=== PATIENT | female | born 1955 | race Caucasian/White ===

== ENCOUNTER 2020-03-16 03:06 | Outpatient (CLI) | payer MEDICAID, SELFPAY ==
[2020-03-16 12:02] LABS: Abs Immature Grans 0.58 10^3/uL (0.0-0.06); HGB 11.2 g/dL (11.2-15.7); MCH 29.2 pg (27.0-33.0); MCHC 32.9 % (32.0-36.0); MCV 88.5 fL (80-95); MPV 8.8 fL (8.0-11.0); Nucleated RBC 0 %; Platelet Count 437 10^3/uL (130-400); RBC 3.84 10^6/uL (3.93-5.22); RDW 14.1 % (11.7-14.6); RDW-SD 42.9 fL; WBC 9.96 10^3/uL (4.4-10.8)
[2020-03-16 12:16] LABS: Absolute Lymphocyte Count 2.19 10^3/uL (1.2-3.4); Absolute Neutrophil Count 6.18 10^3/uL (1.2-6.7); Atypical Lymphocytes % 4; Diff Comment Manual Differential; Metamyelocytes % 2; Myelocytes % 3; Polychromasia Present
[2020-03-16 12:34] LABS: ALT 25 U/L (14-59); AST 20 U/L (15-37); Albumin 3.4 g/dL (3.4-5.0); Alkaline Phosphatase 136 U/L (46-116); Anion Gap 6.1 mmol/L (3-11); BUN 9 mg/dL (7-18); Bilirubin, Total 0.3 mg/dL (0.2-1.0); CO2 27.9 mmol/L (21.0-32.0); CREATININE 0.73 mg/dL (0.55-1.02); Calcium 8.6 mg/dL (8.5-10.1); Chloride 107 mmol/L (98-107); FREE T4 1.15 ng/dL (0.76-1.46); Glucose 103 mg/dL (74-106); Magnesium 1.3 mg/dL (1.8-2.4); Potassium 3.5 mmol/L (3.5-5.1); Sodium 141 mmol/L (136-145); TSH 0.33 uIU/mL (0.36-3.74); Total Protein 6.8 g/dL (6.4-8.2)
== END 2020-03-16 03:26 ==
PROVIDERS: PCP Legal Medicine; Visit Provider Internal Medicine Medical Oncology
DX: C34.90 Malignant neoplasm of unspecified part of unspecified bronchus or lung (principal)
CPT/HCPCS: 36415; 80053; 83735; 84439; 84443; 85025

== ENCOUNTER 2020-03-26 07:40 | Outpatient (CLI) | payer MEDICAID, SELFPAY ==
[2020-03-26 10:41] LABS: Abs Immature Grans 0.04 10^3/uL (0.0-0.06); Absolute Basophil Count 0.04 10^3/uL (0.0-0.2); Absolute Eosinophil Count 0.08 10^3/uL (0.0-0.7); Absolute Lymphocyte Count 1.24 10^3/uL (1.2-3.4); Absolute Monocyte Count 0.25 10^3/uL (0.1-0.8); HCT 31.2 % (36.0-46.0); HGB 10.4 g/dL (11.2-15.7); Lymphocytes % 31.4; MCH 29.1 pg (27.0-33.0); MCHC 33.3 % (32.0-36.0); MCV 87.4 fL (80-95); MPV 9.6 fL (8.0-11.0); Monocytes % 6.3; Neutrophils % 58.3; Nucleated RBC 0 %; Platelet Count 186 10^3/uL (130-400); RBC 3.57 10^6/uL (3.93-5.22); RDW 13.7 % (11.7-14.6); RDW-SD 42.2 fL; WBC 3.95 10^3/uL (4.4-10.8)
[2020-03-26 10:54] LABS: ALT 37 U/L (14-59); AST 25 U/L (15-37); Albumin 3.6 g/dL (3.4-5.0); Alkaline Phosphatase 171 U/L (46-116); Anion Gap 8.5 mmol/L (3-11); BUN 18 mg/dL (7-18); Bilirubin, Total 0.8 mg/dL (0.2-1.0); CO2 27.5 mmol/L (21.0-32.0); CREATININE 1.08 mg/dL (0.55-1.02); Calcium 8.8 mg/dL (8.5-10.1); Chloride 102 mmol/L (98-107); Estimated GFR 51.08 (mL/min/1.73m2); Glucose 114 mg/dL (74-106); Magnesium 1.4 mg/dL (1.8-2.4); Potassium 3.8 mmol/L (3.5-5.1); Sodium 138 mmol/L (136-145); Total Protein 6.9 g/dL (6.4-8.2)
== END 2020-03-26 08:00 ==
PROVIDERS: PCP Legal Medicine; Visit Provider Internal Medicine Medical Oncology
DX: C34.90 Malignant neoplasm of unspecified part of unspecified bronchus or lung (principal)
CPT/HCPCS: 36415; 80053; 83735; 85025

== ENCOUNTER 2020-04-06 02:49 | Outpatient (RCR) | payer MEDICAID, SELFPAY | END 2020-04-13 23:59 | disposition home or self-care (01) | LOC: INF 02:49 | PROVIDERS: PCP Legal Medicine; Visit Provider Internal Medicine Medical Oncology ==

== ENCOUNTER 2020-04-06 11:42 | Outpatient (REF) | payer MEDICAID, SELFPAY ==
[2020-04-06 12:04] LABS: ALT 25 U/L (14-59); AST 22 U/L (15-37); Abs Immature Grans 0.88 10^3/uL (0.0-0.06); Albumin 3.8 g/dL (3.4-5.0); Alkaline Phosphatase 136 U/L (46-116); Anion Gap 8.8 mmol/L (3-11); BUN 8 mg/dL (7-18); Bilirubin, Total 0.2 mg/dL (0.2-1.0); CO2 26.2 mmol/L (21.0-32.0); CREATININE 0.85 mg/dL (0.55-1.02); Calcium 8.8 mg/dL (8.5-10.1); Chloride 104 mmol/L (98-107); FREE T4 1.06 ng/dL (0.76-1.46); Glucose 89 mg/dL (74-106); HCT 32.4 % (36.0-46.0); HGB 10.8 g/dL (11.2-15.7); MCH 30.6 pg (27.0-33.0); MCHC 33.3 % (32.0-36.0); MCV 91.8 fL (80-95); MPV 9.5 fL (8.0-11.0); Magnesium 1.7 mg/dL (1.8-2.4); Nucleated RBC 0 %; Potassium 4.3 mmol/L (3.5-5.1); RBC 3.53 10^6/uL (3.93-5.22); RDW 17.2 % (11.7-14.6); RDW-SD 55.1 fL; Sodium 139 mmol/L (136-145); TSH 0.47 uIU/mL (0.36-3.74); Total Protein 7.1 g/dL (6.4-8.2); WBC 7.35 10^3/uL (4.4-10.8)
[2020-04-06 12:20] LABS: Absolute Lymphocyte Count 1.62 10^3/uL (1.2-3.4); Absolute Monocyte Count 0.81 10^3/uL (0.1-0.8); Absolute Neutrophil Count 3.97 10^3/uL (1.2-6.7); Bands % 3; Platelet Count 644 10^3/uL (130-400)
[2020-04-06 12:21] LABS: Anisocytosis 2+; Diff Comment Manual Differential; Metamyelocytes % 6; Myelocytes % 7; Polychromasia Present
== END 2020-04-06 12:02 ==
LOC: LBN 11:42
PROVIDERS: PCP Legal Medicine; Visit Provider Internal Medicine Medical Oncology
DX: C34.90 Malignant neoplasm of unspecified part of unspecified bronchus or lung (principal)
CPT/HCPCS: 80053; 83735; 84439; 84443; 85025

== ENCOUNTER 2020-04-27 01:32 | Outpatient (RCR) | payer MEDICAID, SELFPAY ==
[2020-04-15 10:36] LABS: ALT 47 U/L (14-59); AST 29 U/L (15-37); Albumin 3.4 g/dL (3.4-5.0); Alkaline Phosphatase 232 U/L (46-116); Anion Gap 8.4 mmol/L (3-11); BUN 20 mg/dL (7-18); Bilirubin, Total 0.5 mg/dL (0.2-1.0); CO2 24.6 mmol/L (21.0-32.0); CREATININE 0.99 mg/dL (0.55-1.02); Calcium 8.9 mg/dL (8.5-10.1); Chloride 102 mmol/L (98-107); Estimated GFR 56.47 (mL/min/1.73m2); Glucose 106 mg/dL (74-106); Magnesium 1.8 mg/dL (1.8-2.4); Potassium 4.4 mmol/L (3.5-5.1); Sodium 135 mmol/L (136-145); Total Protein 7.2 g/dL (6.4-8.2)
[2020-04-27] MEDS: Normal Saline Flush 10 ML SYR IVP (09:40)
[2020-04-27 09:43] LABS: HGB 9.8 g/dL (11.2-15.7); MCH 30.9 pg (27.0-33.0); MCHC 32.7 % (32.0-36.0); MCV 94.6 fL (80-95); MPV 9.1 fL (8.0-11.0); Platelet Count 390 10^3/uL (130-400); RBC 3.17 10^6/uL (3.93-5.22); RDW 18.9 % (11.7-14.6); RDW-SD 64.5 fL; WBC 11.64 10^3/uL (4.4-10.8)
[2020-04-27 10:06] LABS: Absolute Lymphocyte Count 1.28 10^3/uL (1.2-3.4); Absolute Neutrophil Count 8.38 10^3/uL (1.2-6.7); Bands % 4
[2020-04-27 10:07] LABS: ALT 20 U/L (14-59); AST 15 U/L (15-37); Absolute Eosinophil Count 0.12 10^3/uL (0.0-0.7); Absolute Monocyte Count 1.28 10^3/uL (0.1-0.8); Albumin 3.7 g/dL (3.4-5.0); Alkaline Phosphatase 143 U/L (46-116); Anion Gap 10.7 mmol/L (3-11); Anisocytosis 2+; BUN 12 mg/dL (7-18); Bilirubin, Total 0.4 mg/dL (0.2-1.0); CO2 22.3 mmol/L (21.0-32.0); CREATININE 0.84 mg/dL (0.55-1.02); Calcium 8.6 mg/dL (8.5-10.1); Chloride 102 mmol/L (98-107); Diff Comment Manual Differential; Glucose 113 mg/dL (74-106); Magnesium 1.8 mg/dL (1.8-2.4); Metamyelocytes % 3; Myelocytes % 2; Nucleated RBC 1 %; Poikilocytes 1+; Polychromasia Present; Potassium 4.1 mmol/L (3.5-5.1); Sodium 135 mmol/L (136-145); TSH 1.59 uIU/mL (0.36-3.74); Total Protein 7.1 g/dL (6.4-8.2)
== END 2020-05-14 23:59 | disposition home or self-care (01) ==
LOC: INF 01:32
PROVIDERS: PCP Legal Medicine; Visit Provider Internal Medicine Medical Oncology
DX: C34.90 Malignant neoplasm of unspecified part of unspecified bronchus or lung (principal)
CPT/HCPCS: 36415; 80053; 83735; 84439; 84443; 85025

== ENCOUNTER 2020-05-26 02:15 | Outpatient (CLI) | payer MEDICAID, SELFPAY ==
[2020-05-26 10:35] LABS: Abs Immature Grans 0.25 10^3/uL (0.0-0.06); Absolute Basophil Count 0.03 10^3/uL (0.0-0.2); HCT 24.9 % (36.0-46.0); HGB 8.3 g/dL (11.2-15.7); MCH 31.4 pg (27.0-33.0); MCHC 33.3 % (32.0-36.0); MCV 94.3 fL (80-95); MPV 9.1 fL (8.0-11.0); Nucleated RBC 0 %; RBC 2.64 10^6/uL (3.93-5.22); RDW 16.8 % (11.7-14.6); RDW-SD 58.4 fL; WBC 3.49 10^3/uL (4.4-10.8)
[2020-05-26 10:56] LABS: ALT 20 U/L (14-59); AST 14 U/L (15-37); Alkaline Phosphatase 154 U/L (46-116); Anion Gap 8.8 mmol/L (3-11); BUN 23 mg/dL (7-18); Bilirubin, Total 0.6 mg/dL (0.2-1.0); CO2 26.2 mmol/L (21.0-32.0); Calcium 8.8 mg/dL (8.5-10.1); Chloride 102 mmol/L (98-107); Estimated GFR 50.01 (mL/min/1.73m2); FREE T4 1.36 ng/dL (0.76-1.46); Glucose 129 mg/dL (74-106); Magnesium 1.8 mg/dL (1.8-2.4); Sodium 137 mmol/L (136-145); TSH 0.17 uIU/mL (0.36-3.74); Total Protein 7.1 g/dL (6.4-8.2)
[2020-05-26 10:59] LABS: Absolute Lymphocyte Count 0.56 10^3/uL (1.2-3.4); Absolute Neutrophil Count 2.86 10^3/uL (1.2-6.7); Anisocytosis 1+; Bands % 3; Diff Comment Manual Differential; Platelet Count 304 10^3/uL (130-400)
[2020-05-26 11:00] LABS: Absolute Monocyte Count 0.03 10^3/uL (0.1-0.8)
== END 2020-05-26 02:35 ==
PROVIDERS: PCP Legal Medicine; Visit Provider Internal Medicine Medical Oncology
DX: C34.90 Malignant neoplasm of unspecified part of unspecified bronchus or lung (principal)
CPT/HCPCS: 36415; 80053; 83735; 84439; 84443; 85025

== ENCOUNTER 2020-06-08 03:06 | Outpatient (RCR) | payer MEDICAID, SELFPAY ==
[2020-05-18] MEDS: Normal Saline Flush 10 ML SYR IVP (08:58)
[2020-05-18 09:10] LABS: Abs Immature Grans 0.25 10^3/uL (0.0-0.06); Absolute Basophil Count 0.03 10^3/uL (0.0-0.2); Absolute Eosinophil Count 0.05 10^3/uL (0.0-0.7); Absolute Lymphocyte Count 0.93 10^3/uL (1.2-3.4); Absolute Monocyte Count 0.96 10^3/uL (0.1-0.8); Absolute Neutrophil Count 7.05 10^3/uL (1.2-6.7); Basophils % 0.3; Eosinophils % 0.5; HCT 25.6 % (36.0-46.0); HGB 8.4 g/dL (11.2-15.7); Immature Grans % 2.7; MCHC 32.8 % (32.0-36.0); MCV 94.5 fL (80-95); MPV 9.2 fL (8.0-11.0); Monocytes % 10.4; Neutrophils % 76.1; Nucleated RBC 0 %; Platelet Count 433 10^3/uL (130-400); RBC 2.71 10^6/uL (3.93-5.22); RDW-SD 66.4 fL; WBC 9.27 10^3/uL (4.4-10.8)
[2020-05-18 09:32] LABS: ALT 21 U/L (14-59); AST 17 U/L (15-37); Alkaline Phosphatase 154 U/L (46-116); Anion Gap 8.7 mmol/L (3-11); BUN 13 mg/dL (7-18); Bilirubin, Total 0.4 mg/dL (0.2-1.0); CO2 24.3 mmol/L (21.0-32.0); CREATININE 0.99 mg/dL (0.55-1.02); Calcium 8.6 mg/dL (8.5-10.1); Chloride 103 mmol/L (98-107); Estimated GFR 56.47 (mL/min/1.73m2); FREE T4 1.31 ng/dL (0.76-1.46); Glucose 124 mg/dL (74-106); Magnesium 1.7 mg/dL (1.8-2.4); Sodium 136 mmol/L (136-145); TSH 1.32 uIU/mL (0.36-3.74); Total Protein 6.8 g/dL (6.4-8.2)
[2020-06-08 09:52] LABS: Abs Immature Grans 0.69 10^3/uL (0.0-0.06); HCT 31.3 % (36.0-46.0); HGB 10.2 g/dL (11.2-15.7); MCH 29.9 pg (27.0-33.0); MCHC 32.6 % (32.0-36.0); MCV 91.8 fL (80-95); MPV 9.1 fL (8.0-11.0); Nucleated RBC 0 %; Platelet Count 388 10^3/uL (130-400); RBC 3.41 10^6/uL (3.93-5.22); RDW 16.5 % (11.7-14.6); RDW-SD 55.1 fL; WBC 10.78 10^3/uL (4.4-10.8)
[2020-06-08 10:09] LABS: Absolute Lymphocyte Count 1.19 10^3/uL (1.2-3.4); Absolute Monocyte Count 0.65 10^3/uL (0.1-0.8); Absolute Neutrophil Count 8.09 10^3/uL (1.2-6.7); Anisocytosis 1+; Diff Comment Manual Differential; Metamyelocytes % 4; Myelocytes % 4
[2020-06-08 10:10] LABS: Polychromasia Present
[2020-06-08 10:15] LABS: AST 13 U/L (15-37); Albumin 2.8 g/dL (3.4-5.0); Alkaline Phosphatase 164 U/L (46-116); Anion Gap 8.1 mmol/L (3-11); BUN 7 mg/dL (7-18); Bilirubin, Total 0.2 mg/dL (0.2-1.0); CO2 26.9 mmol/L (21.0-32.0); CREATININE 1.09 mg/dL (0.55-1.02); Calcium 8.6 mg/dL (8.5-10.1); Chloride 103 mmol/L (98-107); Estimated GFR 50.54 (mL/min/1.73m2); Glucose 114 mg/dL (74-106); Potassium 3.4 mmol/L (3.5-5.1); Sodium 138 mmol/L (136-145); Total Protein 6.9 g/dL (6.4-8.2)
[2020-06-08 10:16] LABS: ALT 18 U/L (14-59); FREE T4 1.39 ng/dL (0.76-1.46); Magnesium 1.6 mg/dL (1.8-2.4); TSH 0.39 uIU/mL (0.36-3.74)
[2020-06-08] MEDS: Normal Saline Flush 10 ML SYR IVP (10:19)
== END 2020-06-14 23:59 | disposition home or self-care (01) ==
LOC: INF 03:06
PROVIDERS: PCP Legal Medicine; Visit Provider Internal Medicine Medical Oncology
DX: C34.90 Malignant neoplasm of unspecified part of unspecified bronchus or lung (principal)
CPT/HCPCS: 36415; 80053; 83735; 84439; 84443; 85025

== ENCOUNTER 2020-06-29 01:29 | Outpatient (RCR) | payer MEDICAID, SELFPAY ==
[2020-06-29] MEDS: Normal Saline Flush 10 ML SYR IVP (09:46)
[2020-06-29 09:54] LABS: Abs Immature Grans 0.08 10^3/uL (0.0-0.06); Absolute Basophil Count 0.11 10^3/uL (0.0-0.2); Absolute Eosinophil Count 0.56 10^3/uL (0.0-0.7); Absolute Lymphocyte Count 1.82 10^3/uL (1.2-3.4); Absolute Monocyte Count 0.67 10^3/uL (0.1-0.8); Absolute Neutrophil Count 5.57 10^3/uL (1.2-6.7); Basophils % 1.2; Eosinophils % 6.4; HCT 40.3 % (36.0-46.0); HGB 13.3 g/dL (11.2-15.7); Immature Grans % 0.9; Lymphocytes % 20.7; MCH 30.8 pg (27.0-33.0); MCV 93.3 fL (80-95); MPV 10.5 fL (8.0-11.0); Monocytes % 7.6; Neutrophils % 63.2; Nucleated RBC 0 %; Platelet Count 271 10^3/uL (130-400); RBC 4.32 10^6/uL (3.93-5.22); RDW 14.8 % (11.7-14.6); RDW-SD 50.9 fL; WBC 8.81 10^3/uL (4.4-10.8)
[2020-06-29 10:16] LABS: ALT 22 U/L (14-59); AST 27 U/L (15-37); Albumin 3.7 g/dL (3.4-5.0); Alkaline Phosphatase 131 U/L (46-116); Anion Gap 9.8 mmol/L (3-11); BUN 18 mg/dL (7-18); Bilirubin, Total 0.4 mg/dL (0.2-1.0); CO2 23.2 mmol/L (21.0-32.0); CREATININE 1.1 mg/dL (0.55-1.02); Calcium 9.3 mg/dL (8.5-10.1); Chloride 103 mmol/L (98-107); Estimated GFR 50.01 (mL/min/1.73m2); Glucose 102 mg/dL (74-106); Magnesium 1.8 mg/dL (1.8-2.4); Sodium 136 mmol/L (136-145); TSH 0.44 uIU/mL (0.36-3.74); Total Protein 7.6 g/dL (6.4-8.2)
[2020-06-29 12:30] LABS: FREE T4 0.95 ng/dL (0.76-1.46)
== END 2020-07-12 23:59 | disposition home or self-care (01) ==
LOC: INF 01:29
PROVIDERS: PCP Legal Medicine; Visit Provider Internal Medicine Medical Oncology
DX: C34.90 Malignant neoplasm of unspecified part of unspecified bronchus or lung (principal)
CPT/HCPCS: 36415; 80053; 83735; 84439; 84443; 85025

== ENCOUNTER 2020-07-20 03:32 | Outpatient (RCR) | payer MEDICAID, SELFPAY ==
[2020-07-20] MEDS: Normal Saline Flush 10 ML SYR IVP (12:39)
[2020-07-20 12:45] LABS: Abs Immature Grans 0.07 10^3/uL (0.0-0.06); Absolute Basophil Count 0.07 10^3/uL (0.0-0.2); Absolute Eosinophil Count 0.35 10^3/uL (0.0-0.7); Absolute Lymphocyte Count 1.59 10^3/uL (1.2-3.4); Absolute Monocyte Count 0.59 10^3/uL (0.1-0.8); Basophils % 0.8; Eosinophils % 4.1; HCT 38.8 % (36.0-46.0); HGB 12.8 g/dL (11.2-15.7); Immature Grans % 0.8; Lymphocytes % 18.8; MCH 30.6 pg (27.0-33.0); MCV 92.8 fL (80-95); MPV 9.3 fL (8.0-11.0); Neutrophils % 68.5; Nucleated RBC 0 %; Platelet Count 317 10^3/uL (130-400); RBC 4.18 10^6/uL (3.93-5.22); RDW 14.3 % (11.7-14.6); RDW-SD 49.5 fL; WBC 8.47 10^3/uL (4.4-10.8)
[2020-07-20 13:12] LABS: ALT 26 U/L (14-59); AST 25 U/L (15-37); Alkaline Phosphatase 130 U/L (46-116); Anion Gap 9.1 mmol/L (3-11); BUN 19 mg/dL (7-18); Bilirubin, Total 0.7 mg/dL (0.2-1.0); CO2 25.9 mmol/L (21.0-32.0); Chloride 102 mmol/L (98-107); Estimated GFR 55.82 (mL/min/1.73m2); FREE T4 0.85 ng/dL (0.76-1.46); Glucose 90 mg/dL (74-106); Magnesium 1.9 mg/dL (1.8-2.4); Potassium 5.2 mmol/L (3.5-5.1); Sodium 137 mmol/L (136-145); TSH 0.32 uIU/mL (0.36-3.74); Total Protein 7.8 g/dL (6.4-8.2)
== END 2020-08-12 23:59 | disposition home or self-care (01) ==
LOC: INF 03:32
PROVIDERS: PCP Legal Medicine; Visit Provider Internal Medicine Medical Oncology
DX: C34.90 Malignant neoplasm of unspecified part of unspecified bronchus or lung (principal)
CPT/HCPCS: 36415; 80053; 83735; 84439; 84443; 85025

== ENCOUNTER 2020-08-17 14:03 | Outpatient (REF) | payer MEDICAID, SELFPAY ==
[2020-08-17 14:30] LABS: ALT 24 U/L (14-59); AST 18 U/L (15-37); Albumin 4.1 g/dL (3.4-5.0); Alkaline Phosphatase 145 U/L (46-116); Anion Gap 10.8 mmol/L (3-11); BUN 30 mg/dL (7-18); Bilirubin, Total 0.5 mg/dL (0.2-1.0); CO2 23.2 mmol/L (21.0-32.0); CREATININE 1.3 mg/dL (0.55-1.02); Calcium 9.4 mg/dL (8.5-10.1); Chloride 103 mmol/L (98-107); Estimated GFR 41.24 (mL/min/1.73m2); FREE T4 0.88 ng/dL (0.76-1.46); Glucose 85 mg/dL (74-106); Sodium 137 mmol/L (136-145); TSH 0.63 uIU/mL (0.36-3.74)
== END 2020-08-17 14:04 | disposition home or self-care (01) ==
LOC: LBN 14:03
PROVIDERS: PCP Legal Medicine; Visit Provider Internal Medicine Medical Oncology
DX: C34.90 Malignant neoplasm of unspecified part of unspecified bronchus or lung (principal)
CPT/HCPCS: 80053; 83735; 84439; 84443

== ENCOUNTER 2020-09-07 03:19 | Outpatient (RCR) | payer MEDICAID, SELFPAY ==
[2020-08-17 13:10] LABS: Abs Immature Grans 0.06 10^3/uL (0.0-0.06); Absolute Basophil Count 0.07 10^3/uL (0.0-0.2); Absolute Eosinophil Count 0.34 10^3/uL (0.0-0.7); Absolute Lymphocyte Count 1.39 10^3/uL (1.2-3.4); Absolute Monocyte Count 0.64 10^3/uL (0.1-0.8); Absolute Neutrophil Count 5.19 10^3/uL (1.2-6.7); Basophils % 0.9; Eosinophils % 4.4; HCT 37.9 % (36.0-46.0); HGB 12.9 g/dL (11.2-15.7); Immature Grans % 0.8; Lymphocytes % 18.1; MCH 31.3 pg (27.0-33.0); MPV 9.2 fL (8.0-11.0); Monocytes % 8.3; Neutrophils % 67.5; Nucleated RBC 0 %; Platelet Count 342 10^3/uL (130-400); RBC 4.12 10^6/uL (3.93-5.22); RDW 13.8 % (11.7-14.6); RDW-SD 46.6 fL; WBC 7.69 10^3/uL (4.4-10.8)
[2020-08-17] MEDS: Normal Saline Flush 10 ML SYR IVP (13:15)
[2020-09-07 08:21] LABS: Abs Immature Grans 0.03 10^3/uL (0.0-0.06); Absolute Basophil Count 0.04 10^3/uL (0.0-0.2); Absolute Eosinophil Count 0.27 10^3/uL (0.0-0.7); Absolute Lymphocyte Count 1.78 10^3/uL (1.2-3.4); Absolute Monocyte Count 0.46 10^3/uL (0.1-0.8); Absolute Neutrophil Count 4.07 10^3/uL (1.2-6.7); Basophils % 0.6; Eosinophils % 4.1; HCT 37.6 % (36.0-46.0); HGB 12.5 g/dL (11.2-15.7); Immature Grans % 0.5; Lymphocytes % 26.8; MCH 31.2 pg (27.0-33.0); MCHC 33.2 % (32.0-36.0); MCV 93.8 fL (80-95); MPV 9.4 fL (8.0-11.0); Monocytes % 6.9; Neutrophils % 61.1; Nucleated RBC 0 %; Platelet Count 236 10^3/uL (130-400); RBC 4.01 10^6/uL (3.93-5.22); RDW 13.1 % (11.7-14.6); RDW-SD 44.8 fL; WBC 6.65 10^3/uL (4.4-10.8)
[2020-09-07 08:44] LABS: ALT 21 U/L (14-59); AST 16 U/L (15-37); Albumin 3.9 g/dL (3.4-5.0); Alkaline Phosphatase 140 U/L (46-116); Anion Gap 8.3 mmol/L (3-11); BUN 20 mg/dL (7-18); Bilirubin, Total 0.4 mg/dL (0.2-1.0); CO2 27.7 mmol/L (21.0-32.0); CREATININE 1.2 mg/dL (0.55-1.02); Calcium 9.2 mg/dL (8.5-10.1); Chloride 105 mmol/L (98-107); Estimated GFR 45.23 (mL/min/1.73m2); FREE T4 0.87 ng/dL (0.76-1.46); Glucose 96 mg/dL (74-106); Magnesium 1.8 mg/dL (1.8-2.4); Potassium 4.5 mmol/L (3.5-5.1); Sodium 141 mmol/L (136-145); TSH 0.55 uIU/mL (0.36-3.74); Total Protein 7.6 g/dL (6.4-8.2)
[2020-09-07] MEDS: Normal Saline Flush 10 ML SYR IVP (08:54)
== END 2020-09-11 23:59 | disposition home or self-care (01) ==
LOC: INF 03:19
PROVIDERS: PCP Legal Medicine; Visit Provider Internal Medicine Medical Oncology
DX: C34.90 Malignant neoplasm of unspecified part of unspecified bronchus or lung (principal)
CPT/HCPCS: 36415; 80053; 83735; 84439; 84443; 85025

== ENCOUNTER 2020-09-28 02:40 | Outpatient (RCR) | payer MEDICAID, SELFPAY ==
[2020-09-28 10:10] LABS: Abs Immature Grans 0.03 10^3/uL (0.0-0.06); Absolute Basophil Count 0.04 10^3/uL (0.0-0.2); Absolute Lymphocyte Count 1.25 10^3/uL (1.2-3.4); Absolute Monocyte Count 0.47 10^3/uL (0.1-0.8); Absolute Neutrophil Count 4.31 10^3/uL (1.2-6.7); Basophils % 0.6; Eosinophils % 4.7; Immature Grans % 0.5; Lymphocytes % 19.5; MCH 31.5 pg (27.0-33.0); MCHC 33.3 % (32.0-36.0); MCV 94.5 fL (80-95); MPV 9.5 fL (8.0-11.0); Monocytes % 7.3; Neutrophils % 67.4; Nucleated RBC 0 %; Platelet Count 206 10^3/uL (130-400); RBC 3.81 10^6/uL (3.93-5.22); RDW 13.3 % (11.7-14.6); RDW-SD 45.4 fL
[2020-09-28] MEDS: Normal Saline Flush 10 ML SYR IVP (10:14)
[2020-09-28 10:31] LABS: ALT 18 U/L (14-59); AST 21 U/L (15-37); Albumin 3.8 g/dL (3.4-5.0); Alkaline Phosphatase 119 U/L (46-116); Anion Gap 9.5 mmol/L (3-11); BUN 23 mg/dL (7-18); Bilirubin, Total 0.4 mg/dL (0.2-1.0); CO2 24.5 mmol/L (21.0-32.0); CREATININE 1.6 mg/dL (0.55-1.02); Calcium 8.9 mg/dL (8.5-10.1); Chloride 105 mmol/L (98-107); Estimated GFR 32.45 (mL/min/1.73m2); Glucose 93 mg/dL (74-106); Magnesium 1.7 mg/dL (1.8-2.4); Potassium 4.8 mmol/L (3.5-5.1); Sodium 139 mmol/L (136-145); TSH 0.64 uIU/mL (0.36-3.74); Total Protein 7.4 g/dL (6.4-8.2)
== END 2020-10-12 23:59 | disposition home or self-care (01) ==
LOC: INF 02:40
PROVIDERS: PCP Legal Medicine; Visit Provider Internal Medicine Medical Oncology
DX: C34.90 Malignant neoplasm of unspecified part of unspecified bronchus or lung (principal)
CPT/HCPCS: 36415; 80053; 83735; 84439; 84443; 85025

== ENCOUNTER 2020-11-09 02:46 | Outpatient (RCR) | payer MEDICAID, SELFPAY ==
[2020-10-19] MEDS: Normal Saline Flush 10 ML SYR IVP (12:38)
[2020-10-19 12:40] LABS: Abs Immature Grans 0.12 10^3/uL (0.0-0.06); Absolute Basophil Count 0.05 10^3/uL (0.0-0.2); Absolute Eosinophil Count 0.22 10^3/uL (0.0-0.7); Absolute Lymphocyte Count 1.39 10^3/uL (1.2-3.4); Absolute Monocyte Count 0.42 10^3/uL (0.1-0.8); Absolute Neutrophil Count 4.35 10^3/uL (1.2-6.7); Basophils % 0.8; Eosinophils % 3.4; HCT 35.8 % (36.0-46.0); HGB 12.6 g/dL (11.2-15.7); Immature Grans % 1.8; Lymphocytes % 21.2; MCHC 35.2 % (32.0-36.0); MCV 90.9 fL (80-95); Monocytes % 6.4; Neutrophils % 66.4; Nucleated RBC 0 %; Platelet Count 297 10^3/uL (130-400); RBC 3.94 10^6/uL (3.93-5.22); RDW 12.6 % (11.7-14.6); RDW-SD 41.6 fL; WBC 6.55 10^3/uL (4.4-10.8)
[2020-10-19 14:49] LABS: ALT 20 U/L (14-59); AST 15 U/L (15-37); Albumin 3.4 g/dL (3.4-5.0); Alkaline Phosphatase 144 U/L (46-116); Anion Gap 8.8 mmol/L (3-11); BUN 19 mg/dL (7-18); Bilirubin, Total 0.2 mg/dL (0.2-1.0); CO2 26.2 mmol/L (21.0-32.0); Calcium 8.7 mg/dL (8.5-10.1); Chloride 106 mmol/L (98-107); Estimated GFR 55.82 (mL/min/1.73m2); FREE T4 0.85 ng/dL (0.76-1.46); Glucose 91 mg/dL (74-106); Magnesium 1.9 mg/dL (1.8-2.4); Potassium 3.9 mmol/L (3.5-5.1); Sodium 141 mmol/L (136-145); TSH 0.44 uIU/mL (0.36-3.74); Total Protein 7.2 g/dL (6.4-8.2)
[2020-11-09 12:22] LABS: Abs Immature Grans 0.03 10^3/uL (0.0-0.06); Absolute Basophil Count 0.05 10^3/uL (0.0-0.2); Absolute Eosinophil Count 0.28 10^3/uL (0.0-0.7); Absolute Lymphocyte Count 1.07 10^3/uL (1.2-3.4); Absolute Monocyte Count 0.41 10^3/uL (0.1-0.8); Absolute Neutrophil Count 5.42 10^3/uL (1.2-6.7); Basophils % 0.7; Eosinophils % 3.9; HCT 39.2 % (36.0-46.0); HGB 13.3 g/dL (11.2-15.7); Immature Grans % 0.4; Lymphocytes % 14.7; MCH 31.7 pg (27.0-33.0); MCHC 33.9 % (32.0-36.0); MCV 93.3 fL (80-95); MPV 9.6 fL (8.0-11.0); Monocytes % 5.6; Neutrophils % 74.7; Nucleated RBC 0 %; Platelet Count 278 10^3/uL (130-400); RDW-SD 44.3 fL; WBC 7.26 10^3/uL (4.4-10.8)
[2020-11-09] MEDS: Normal Saline Flush 10 ML SYR IVP (12:29)
[2020-11-09 12:49] LABS: ALT 17 U/L (14-59); AST 24 U/L (15-37); Albumin 3.8 g/dL (3.4-5.0); Alkaline Phosphatase 134 U/L (46-116); Anion Gap 11.5 mmol/L (3-11); BUN 12 mg/dL (7-18); Bilirubin, Total 0.6 mg/dL (0.2-1.0); CO2 25.5 mmol/L (21.0-32.0); Calcium 9.2 mg/dL (8.5-10.1); Chloride 105 mmol/L (98-107); Estimated GFR 55.82 (mL/min/1.73m2); FREE T4 0.91 ng/dL (0.76-1.46); Glucose 90 mg/dL (74-106); Magnesium 1.9 mg/dL (1.8-2.4); Potassium 4.8 mmol/L (3.5-5.1); Sodium 142 mmol/L (136-145); Total Protein 7.6 g/dL (6.4-8.2)
== END 2020-11-11 23:59 | disposition home or self-care (01) ==
LOC: INF 02:46
PROVIDERS: PCP Legal Medicine; Visit Provider Internal Medicine Medical Oncology
DX: C34.90 Malignant neoplasm of unspecified part of unspecified bronchus or lung (principal)
CPT/HCPCS: 36415; 80053; 83735; 84439; 84443; 85025

== ENCOUNTER 2020-11-30 02:19 | Outpatient (RCR) | payer MEDICAID, SELFPAY ==
[2020-11-30 09:33] LABS: Abs Immature Grans 0.03 10^3/uL (0.0-0.06); Absolute Basophil Count 0.05 10^3/uL (0.0-0.2); Absolute Eosinophil Count 0.35 10^3/uL (0.0-0.7); Absolute Lymphocyte Count 1.09 10^3/uL (1.2-3.4); Absolute Monocyte Count 0.58 10^3/uL (0.1-0.8); Absolute Neutrophil Count 4.54 10^3/uL (1.2-6.7); Basophils % 0.8; Eosinophils % 5.3; HCT 38.2 % (36.0-46.0); HGB 12.7 g/dL (11.2-15.7); Immature Grans % 0.5; Lymphocytes % 16.4; MCH 31.1 pg (27.0-33.0); MCHC 33.2 % (32.0-36.0); MCV 93.6 fL (80-95); MPV 9.6 fL (8.0-11.0); Monocytes % 8.7; Neutrophils % 68.3; Nucleated RBC 0 %; Platelet Count 237 10^3/uL (130-400); RBC 4.08 10^6/uL (3.93-5.22); RDW 12.2 % (11.7-14.6); RDW-SD 42.5 fL; WBC 6.64 10^3/uL (4.4-10.8)
[2020-11-30] MEDS: Normal Saline Flush 10 ML SYR IVP (09:37)
[2020-11-30 10:00] LABS: ALT 19 U/L (14-59); AST 15 U/L (15-37); Albumin 3.4 g/dL (3.4-5.0); Alkaline Phosphatase 133 U/L (46-116); Anion Gap 8.3 mmol/L (3-11); BUN 15 mg/dL (7-18); Bilirubin, Total 0.6 mg/dL (0.2-1.0); CO2 27.7 mmol/L (21.0-32.0); Calcium 8.7 mg/dL (8.5-10.1); Chloride 107 mmol/L (98-107); Estimated GFR 55.82 (mL/min/1.73m2); Glucose 103 mg/dL (74-106); Magnesium 1.9 mg/dL (1.8-2.4); Potassium 3.7 mmol/L (3.5-5.1); Sodium 143 mmol/L (136-145); TSH 0.97 uIU/mL (0.36-3.74); Total Protein 6.9 g/dL (6.4-8.2)
== END 2020-12-12 23:59 | disposition home or self-care (01) ==
LOC: INF 02:19
PROVIDERS: PCP Legal Medicine; Visit Provider Internal Medicine Medical Oncology
DX: C34.90 Malignant neoplasm of unspecified part of unspecified bronchus or lung (principal)
CPT/HCPCS: 36415; 80053; 83735; 84439; 84443; 85025

== ENCOUNTER 2021-01-11 02:44 | Outpatient (RCR) | payer MEDICAID, SELFPAY ==
[2020-12-21] MEDS: Normal Saline Flush 10 ML SYR IVP (08:44)
[2020-12-21 08:48] LABS: Absolute Basophil Count 0.01 10^3/uL (0.0-0.2); Absolute Eosinophil Count 0.03 10^3/uL (0.0-0.7); Absolute Lymphocyte Count 1.27 10^3/uL (1.2-3.4); Absolute Monocyte Count 0.51 10^3/uL (0.1-0.8); Absolute Neutrophil Count 1.68 10^3/uL (1.2-6.7); Basophils % 0.3; Eosinophils % 0.8; HCT 31.5 % (36.0-46.0); HGB 10.7 g/dL (11.2-15.7); Immature Grans % 2.8; Lymphocytes % 35.3; MCV 91.3 fL (80-95); MPV 9.3 fL (8.0-11.0); Monocytes % 14.2; Neutrophils % 46.6; Nucleated RBC 0 %; Platelet Count 171 10^3/uL (130-400); RBC 3.45 10^6/uL (3.93-5.22); RDW 11.9 % (11.7-14.6); RDW-SD 38.2 fL
[2020-12-21 09:12] LABS: ALT 27 U/L (14-59); AST 28 U/L (15-37); Albumin 3.5 g/dL (3.4-5.0); Alkaline Phosphatase 160 U/L (46-116); Anion Gap 6.7 mmol/L (3-11); BUN 11 mg/dL (7-18); Bilirubin, Total 0.3 mg/dL (0.2-1.0); CO2 27.3 mmol/L (21.0-32.0); Calcium 8.7 mg/dL (8.5-10.1); Chloride 106 mmol/L (98-107); Estimated GFR 55.82 (mL/min/1.73m2); FREE T4 1.03 ng/dL (0.76-1.46); Glucose 105 mg/dL (74-106); Magnesium 1.8 mg/dL (1.8-2.4); Potassium 4.1 mmol/L (3.5-5.1); Sodium 140 mmol/L (136-145); TSH 3.05 uIU/mL (0.36-3.74); Total Protein 6.9 g/dL (6.4-8.2)
== END 2021-01-12 23:59 | disposition home or self-care (01) ==
LOC: INF 02:44
PROVIDERS: PCP Legal Medicine; Visit Provider Internal Medicine Medical Oncology
DX: C34.90 Malignant neoplasm of unspecified part of unspecified bronchus or lung (principal); Z45.2 Encounter for adjustment and management of vascular access device
CPT/HCPCS: 36591; 80053; 83735; 84439; 84443; 85025

== ENCOUNTER 2021-03-08 00:53 | Outpatient (RCR) | payer MEDICARE, MEDICAID, SELFPAY ==
[2021-02-15] MEDS: Normal Saline Flush 10 ML SYR IVP (09:17)
[2021-02-15 09:34] LABS: Abs Immature Grans 0.06 10^3/uL (0.0-0.06); Absolute Basophil Count 0.03 10^3/uL (0.0-0.2); Absolute Eosinophil Count 0.12 10^3/uL (0.0-0.7); Absolute Lymphocyte Count 1.17 10^3/uL (1.2-3.4); Absolute Monocyte Count 0.62 10^3/uL (0.1-0.8); Absolute Neutrophil Count 2.92 10^3/uL (1.2-6.7); Basophils % 0.6; Eosinophils % 2.4; HCT 32.4 % (36.0-46.0); HGB 10.6 g/dL (11.2-15.7); Immature Grans % 1.2; Lymphocytes % 23.8; MCH 32.4 pg (27.0-33.0); MCHC 32.7 % (32.0-36.0); MCV 99.1 fL (80-95); MPV 9.3 fL (8.0-11.0); Monocytes % 12.6; Neutrophils % 59.4; Nucleated RBC 0 %; Platelet Count 248 10^3/uL (130-400); RBC 3.27 10^6/uL (3.93-5.22); RDW 17.4 % (11.7-14.6); RDW-SD 63.4 fL; WBC 4.92 10^3/uL (4.4-10.8)
[2021-02-15 10:02] LABS: ALT 23 U/L (14-59); AST 21 U/L (15-37); Albumin 3.6 g/dL (3.4-5.0); Alkaline Phosphatase 166 U/L (46-116); Anion Gap 8.8 mmol/L (3-11); BUN 18 mg/dL (7-18); Bilirubin, Total 0.5 mg/dL (0.2-1.0); CO2 25.2 mmol/L (21.0-32.0); CREATININE 0.9 mg/dL (0.55-1.02); Calcium 8.7 mg/dL (8.5-10.1); Chloride 107 mmol/L (98-107); FREE T4 0.85 ng/dL (0.76-1.46); Glucose 96 mg/dL (74-106); Magnesium 1.8 mg/dL (1.8-2.4); Potassium 4.3 mmol/L (3.5-5.1); Sodium 141 mmol/L (136-145); TSH 1.43 uIU/mL (0.36-3.74); Total Protein 7.1 g/dL (6.4-8.2)
[2021-03-08] MEDS: Normal Saline Flush 10 ML SYR IVP (07:48)
[2021-03-08 07:56] LABS: Abs Immature Grans 0.07 10^3/uL (0.0-0.06); Absolute Basophil Count 0.01 10^3/uL (0.0-0.2); Absolute Eosinophil Count 0.03 10^3/uL (0.0-0.7); Absolute Lymphocyte Count 1.44 10^3/uL (1.2-3.4); Absolute Monocyte Count 0.43 10^3/uL (0.1-0.8); Absolute Neutrophil Count 0.81 10^3/uL (1.2-6.7); Basophils % 0.4; Eosinophils % 1.1; HCT 28.1 % (36.0-46.0); HGB 9.4 g/dL (11.2-15.7); Immature Grans % 2.5; Lymphocytes % 51.6; MCH 33.5 pg (27.0-33.0); MCHC 33.5 % (32.0-36.0); MPV 9.9 fL (8.0-11.0); Monocytes % 15.4; Nucleated RBC 0 %; Platelet Count 190 10^3/uL (130-400); RBC 2.81 10^6/uL (3.93-5.22); RDW 16.6 % (11.7-14.6); RDW-SD 58.2 fL; WBC 2.79 10^3/uL (4.4-10.8)
[2021-03-08 08:12] LABS: Anisocytosis 1+; Diff Comment RBC Morph Reviewed
[2021-03-08 08:13] LABS: Polychromasia Present
[2021-03-08 08:19] LABS: ALT 20 U/L (14-59); AST 15 U/L (15-37); Albumin 3.8 g/dL (3.4-5.0); Alkaline Phosphatase 164 U/L (46-116); Anion Gap 7.6 mmol/L (3-11); BUN 14 mg/dL (7-18); Bilirubin, Total 0.4 mg/dL (0.2-1.0); CO2 27.4 mmol/L (21.0-32.0); CREATININE 1.1 mg/dL (0.55-1.02); Calcium 8.6 mg/dL (8.5-10.1); Chloride 106 mmol/L (98-107); Estimated GFR 49.85 (mL/min/1.73m2); FREE T4 0.88 ng/dL (0.76-1.46); Glucose 98 mg/dL (74-106); Magnesium 1.8 mg/dL (1.8-2.4); Potassium 4.2 mmol/L (3.5-5.1); Sodium 141 mmol/L (136-145); TSH 1.27 uIU/mL (0.36-3.74)
== END 2021-03-14 23:59 | disposition home or self-care (01) ==
LOC: INF 00:53
PROVIDERS: PCP Legal Medicine; Visit Provider Internal Medicine Medical Oncology
DX: C34.90 Malignant neoplasm of unspecified part of unspecified bronchus or lung (principal); Z45.2 Encounter for adjustment and management of vascular access device
CPT/HCPCS: 36591; 80053; 83735; 84439; 84443; 85025

== ENCOUNTER 2021-04-05 01:40 | Outpatient (RCR) | payer MEDICARE, MEDICAID, SELFPAY ==
[2021-03-15] MEDS: Normal Saline Flush 10 ML SYR IVP (09:42)
[2021-03-15] MEDS: Heparin 500 UNITS/5 ML SYRINGE IV (09:43)
[2021-03-15 09:53] LABS: Abs Immature Grans 0.09 10^3/uL (0.0-0.06); Absolute Basophil Count 0.03 10^3/uL (0.0-0.2); Absolute Eosinophil Count 0.05 10^3/uL (0.0-0.7); Absolute Lymphocyte Count 1.33 10^3/uL (1.2-3.4); Absolute Monocyte Count 0.57 10^3/uL (0.1-0.8); Absolute Neutrophil Count 4.54 10^3/uL (1.2-6.7); Basophils % 0.5; Eosinophils % 0.8; HCT 29.7 % (36.0-46.0); HGB 9.7 g/dL (11.2-15.7); Immature Grans % 1.4; Lymphocytes % 20.1; MCH 32.6 pg (27.0-33.0); MCHC 32.7 % (32.0-36.0); MCV 99.7 fL (80-95); MPV 9.1 fL (8.0-11.0); Monocytes % 8.6; Neutrophils % 68.6; Nucleated RBC 0 %; Platelet Count 374 10^3/uL (130-400); RBC 2.98 10^6/uL (3.93-5.22); RDW-SD 58.5 fL; WBC 6.61 10^3/uL (4.4-10.8)
[2021-03-15 10:14] LABS: ALT 38 U/L (14-59); AST 33 U/L (15-37); Albumin 3.6 g/dL (3.4-5.0); Alkaline Phosphatase 216 U/L (46-116); Anion Gap 8.9 mmol/L (3-11); BUN 12 mg/dL (7-18); Bilirubin, Total 0.6 mg/dL (0.2-1.0); CO2 26.1 mmol/L (21.0-32.0); CREATININE 0.9 mg/dL (0.55-1.02); Calcium 8.8 mg/dL (8.5-10.1); Chloride 104 mmol/L (98-107); FREE T4 0.92 ng/dL (0.76-1.46); Glucose 119 mg/dL (74-106); Magnesium 1.8 mg/dL (1.8-2.4); Potassium 4.2 mmol/L (3.5-5.1); Sodium 139 mmol/L (136-145); TSH 1.17 uIU/mL (0.36-3.74); Total Protein 7.3 g/dL (6.4-8.2)
[2021-04-05] MEDS: Normal Saline Flush 10 ML SYR IVP (10:38)
[2021-04-05 10:42] LABS: Abs Immature Grans 0.08 10^3/uL (0.0-0.06); Absolute Basophil Count 0.02 10^3/uL (0.0-0.2); Absolute Eosinophil Count 0.05 10^3/uL (0.0-0.7); Absolute Lymphocyte Count 1.27 10^3/uL (1.2-3.4); Absolute Monocyte Count 0.45 10^3/uL (0.1-0.8); Absolute Neutrophil Count 1.11 10^3/uL (1.2-6.7); Basophils % 0.7; Eosinophils % 1.7; HCT 30.8 % (36.0-46.0); HGB 10.1 g/dL (11.2-15.7); Immature Grans % 2.7; Lymphocytes % 42.6; MCH 33.4 pg (27.0-33.0); MCHC 32.8 % (32.0-36.0); MPV 9.5 fL (8.0-11.0); Monocytes % 15.1; Neutrophils % 37.2; Nucleated RBC 0 %; Platelet Count 345 10^3/uL (130-400); RBC 3.02 10^6/uL (3.93-5.22); RDW 16.1 % (11.7-14.6); RDW-SD 59.7 fL; WBC 2.98 10^3/uL (4.4-10.8)
[2021-04-05 11:08] LABS: ALT 25 U/L (14-59); AST 20 U/L (15-37); Albumin 3.8 g/dL (3.4-5.0); Alkaline Phosphatase 177 U/L (46-116); Anion Gap 9.1 mmol/L (3-11); BUN 12 mg/dL (7-18); Bilirubin, Total 0.3 mg/dL (0.2-1.0); CO2 24.9 mmol/L (21.0-32.0); Calcium 8.5 mg/dL (8.5-10.1); Chloride 106 mmol/L (98-107); Estimated GFR 55.64 (mL/min/1.73m2); FREE T4 0.89 ng/dL (0.76-1.46); Glucose 96 mg/dL (74-106); Magnesium 1.8 mg/dL (1.8-2.4); Potassium 4.5 mmol/L (3.5-5.1); Sodium 140 mmol/L (136-145); TSH 0.98 uIU/mL (0.36-3.74)
== END 2021-04-13 23:59 | disposition home or self-care (01) ==
LOC: INF 01:40
PROVIDERS: PCP Legal Medicine; Visit Provider Internal Medicine Medical Oncology
DX: C34.90 Malignant neoplasm of unspecified part of unspecified bronchus or lung (principal); Z45.2 Encounter for adjustment and management of vascular access device; Z79.899 Other long term (current) drug therapy
CPT/HCPCS: 36591; 80053; 83735; 84439; 84443; 85025

== ENCOUNTER 2021-05-17 01:18 | Outpatient (RCR) | payer MEDICARE, MEDICAID, SELFPAY ==
[2021-05-17] MEDS: Normal Saline Flush 10 ML SYR IVP (08:38)
[2021-05-17 08:55] LABS: Abs Immature Grans 0.03 10^3/uL (0.0-0.06); Absolute Basophil Count 0.05 10^3/uL (0.0-0.2); Absolute Eosinophil Count 0.25 10^3/uL (0.0-0.7); Absolute Lymphocyte Count 0.96 10^3/uL (1.2-3.4); Absolute Monocyte Count 0.58 10^3/uL (0.1-0.8); Absolute Neutrophil Count 3.43 10^3/uL (1.2-6.7); Basophils % 0.9; Eosinophils % 4.7; HCT 34.7 % (36.0-46.0); Immature Grans % 0.6; Lymphocytes % 18.1; MCH 31.5 pg (27.0-33.0); MCHC 31.7 % (32.0-36.0); MCV 99.4 fL (80-95); MPV 9.1 fL (8.0-11.0); Monocytes % 10.9; Neutrophils % 64.8; Nucleated RBC 0 %; Platelet Count 198 10^3/uL (130-400); RBC 3.49 10^6/uL (3.93-5.22); RDW 13.6 % (11.7-14.6); RDW-SD 49.2 fL
[2021-05-17 09:18] LABS: ALT 26 U/L (14-59); AST 21 U/L (15-37); Albumin 3.5 g/dL (3.4-5.0); Alkaline Phosphatase 141 U/L (46-116); Anion Gap 6.1 mmol/L (3-11); BUN 13 mg/dL (7-18); Bilirubin, Total 0.5 mg/dL (0.2-1.0); CO2 26.9 mmol/L (21.0-32.0); Calcium 8.4 mg/dL (8.5-10.1); Chloride 107 mmol/L (98-107); Estimated GFR 55.64 (mL/min/1.73m2); FREE T4 0.95 ng/dL (0.76-1.46); Glucose 92 mg/dL (74-106); Magnesium 1.8 mg/dL (1.8-2.4); Potassium 4.6 mmol/L (3.5-5.1); Sodium 140 mmol/L (136-145); TSH 2.64 uIU/mL (0.36-3.74); Total Protein 6.8 g/dL (6.4-8.2)
== END 2021-06-14 23:59 | disposition home or self-care (01) ==
LOC: INF 01:18
PROVIDERS: PCP Legal Medicine; Visit Provider Internal Medicine Medical Oncology
DX: Z79.899 Other long term (current) drug therapy (principal); C34.90 Malignant neoplasm of unspecified part of unspecified bronchus or lung; Z45.2 Encounter for adjustment and management of vascular access device
CPT/HCPCS: 36591; 80053; 83735; 84439; 84443; 85025

== ENCOUNTER 2021-07-26 10:07 | Outpatient (RCR) | payer MEDICARE, MEDICAID, SELFPAY ==
[2021-07-26] MEDS: Normal Saline Flush 10 ML SYR IVP (10:23)
[2021-07-26] MEDS: Heparin 500 UNITS/5 ML SYRINGE (10:23)
[2021-07-26 10:43] LABS: Abs Immature Grans 0.04 10^3/uL (0.0-0.06); Absolute Basophil Count 0.03 10^3/uL (0.0-0.2); Absolute Eosinophil Count 0.08 10^3/uL (0.0-0.7); Absolute Lymphocyte Count 0.61 10^3/uL (1.2-3.4); Absolute Monocyte Count 0.52 10^3/uL (0.1-0.8); Basophils % 0.6; Eosinophils % 1.6; HCT 36.1 % (36.0-46.0); Immature Grans % 0.8; MCH 31.3 pg (27.0-33.0); MCHC 33.2 % (32.0-36.0); MPV 9.1 fL (8.0-11.0); Monocytes % 10.2; Neutrophils % 74.8; Nucleated RBC 0 %; Platelet Count 216 10^3/uL (130-400); RBC 3.84 10^6/uL (3.93-5.22); RDW 13.5 % (11.7-14.6); RDW-SD 46.2 fL; WBC 5.08 10^3/uL (4.4-10.8)
[2021-07-26 11:06] LABS: ALT 16 U/L (14-59); AST 12 U/L (15-37); Albumin 3.8 g/dL (3.4-5.0); Alkaline Phosphatase 128 U/L (46-116); BUN 14 mg/dL (7-18); Bilirubin, Total 0.7 mg/dL (0.2-1.0); CREATININE 0.9 mg/dL (0.55-1.02); Chloride 107 mmol/L (98-107); FREE T4 0.84 ng/dL (0.76-1.46); Glucose 99 mg/dL (74-106); Magnesium 1.6 mg/dL (1.8-2.4); Potassium 3.7 mmol/L (3.5-5.1); Sodium 143 mmol/L (136-145); TSH 1.69 uIU/mL (0.36-3.74); Total Protein 7.1 g/dL (6.4-8.2)
== END 2021-08-12 23:59 | disposition home or self-care (01) ==
LOC: INF 10:07
PROVIDERS: PCP Legal Medicine; Visit Provider Internal Medicine Medical Oncology
DX: C34.90 Malignant neoplasm of unspecified part of unspecified bronchus or lung (principal); Z79.899 Other long term (current) drug therapy; Z45.2 Encounter for adjustment and management of vascular access device
CPT/HCPCS: 36591; 80053; 83735; 84439; 84443; 85025

== ENCOUNTER → 2021-09-27 02:28 | Outpatient (CLI) | payer MEDICARE, MEDICAID, SELFPAY | PROVIDERS: PCP Legal Medicine; Visit Provider Internal Medicine Medical Oncology ==